=== PATIENT | male | born 2000 | race African-American/Black ===

== ENCOUNTER 2020-07-07 01:55 | Emergency (ER) | payer OTHER | END 2020-07-07 03:08 | disposition home or self-care (01) | LOC: CSHERS 01:55 | DX: K40.90 Unilateral inguinal hernia, without obstruction or gangrene, not specified as recurrent (principal); F17.290 Nicotine dependence, other tobacco product, uncomplicated | CPT/HCPCS: 99283 ==

== ENCOUNTER 2020-08-15 00:09 | Emergency (ER) | payer OTHER ==
[2020-08-15] MEDS ORDERED: Morphine 4 MG/ML VIAL ONE (01:21)
[2020-08-15] MEDS ORDERED: Ondansetron PF 4 MG/2 ML Vial ONE (01:22)
[2020-08-15] MEDS ORDERED: Ketorolac Tromethamine 15 MG/ML VIAL ONE (01:22)
[2020-08-15 01:43] LABS: #Basophils 0.1 10x3/uL (0.0-0.2); #Eosinphils 0.2 10x3/uL (0.0-0.5); #Monocytes 0.6 10x3/uL (0.0-1.1); #Neutrophils 2.6 10x3/uL (1.5-8.4); %Basophils 1.1 % (0.0-2.0); %Eosinophils 2.3 % (0.0-6.0); %Lymphocytes 48.7 % (18.0-47.0); %Monocytes 8.3 % (0.0-10.0); %Neutrophils 39.3 % (40.0-75.0); Hemoglobin 16.6 g/dL (13.5-17.5); Mean Corpuscular HGB CONC 34.5 g/dL (32.0-36.0); Mean Corpuscular Hemoglobin 30.1 pg (27.0-33.0); Mean Corpuscular Volume 87.1 fl (81.2-95.1); Mean Platelet Volume 9.7 fl (7.4-10.4); Platelet Count 266 10x3/uL (150-450); RBC Distribution Width 12.6 % (11.5-14.5); Red Blood Cell (RBC) Count 5.52 10x6/uL (4.32-5.72); White Blood Cell (WBC) Count 6.6 10x3/uL (3.5-10.5)
[2020-08-15 01:59] LABS: ALT (SGPT) 71 U/L (8-55); AST (SGOT) 35 U/L (10-45); Albumin 4.2 g/dL (3.5-5.0); Alkaline Phosphatase 93 U/L (50-130); Anion Gap 15 mmol/L (10-20); BUN (Urea Nitrogen) 12 mg/dL (8.4-21.0); Bilirubin, Total 0.2 mg/dL (0.2-1.2); Calc. Creatinine Clearance 0 mL/min (70-130); Calcium 9.4 mg/dL (7.8-10.44); Carbon Dioxide 23 mmol/L (22-29); Chloride 105 mmol/L (98-107); Globulin 3.8 g/dL (2.4-3.5); Glucose 90 mg/dL (70-105); Lipase 31 U/L (8-78); Potassium 3.9 mmol/L (3.5-5.1); Sodium 139 mmol/L (136-145)
[2020-08-15 02:46] LABS: Bilirubin Neg (Negative); Blood, Urine Negative (Negative); Clarity Clear (Clear); Glucose, Urine (Dipstick) Normal (Negative); Ketone, Urine Negative (Negative); Leukocyte Negative (Negative); Nitrite Negative (Negative); Protein, Urine (Dipstick) Negative (Neg-Trace); Urobilinogen Normal mg/dL (Less than 2)
== END 2020-08-15 04:32 | disposition home or self-care (01) ==
LOC: CSHERS 00:09
DX: K40.90 Unilateral inguinal hernia, without obstruction or gangrene, not specified as recurrent (principal); F17.290 Nicotine dependence, other tobacco product, uncomplicated
CPT/HCPCS: 74177; 80053; 81003; 83690; 85025; 96374; 96375; J1885; J2270; J2405